=== PATIENT | female | born 1960 | race Caucasian/White ===

== ENCOUNTER 2017-10-25 12:03 | Emergency (ER) | payer OTHER ==
[~2017-10-25] VITALS: Ht 160 cm; Wt 90.4 kg
[2017-10-25 12:15] VITALS: BP 116/82
[2017-10-25] MEDS ORDERED: KETOCONAZOLE60 GM TP (13:16)
== END 2017-10-25 13:47 | disposition home or self-care (01) ==
LOC: EME 12:03
DX: B36.9 Superficial mycosis, unspecified (principal); L74.0 Miliaria rubra
CPT/HCPCS: 99281; 99283